=== PATIENT | female | born 1950 | race Caucasian/White ===

== ENCOUNTER 2019-03-14 17:59 | Emergency (ER) | payer MEDICARE ==
[~2019-03-14] VITALS: Ht 162.6 cm; Wt 61.4 kg
[~2019-03-14 17:59] MED LIST: ALBU6.7H8 INH; AMOX1TAB12; BUTA-177 PO; CLAR500T3; FLUT50DI; GUAI10LI10 PO; LEVO750T6 PO; OMEP20CA9 PO; RANI-467; SUMA100T4
--- NOTE | 2019-03-14 18:18 | NUR ---
PT AMBULATED BACK TO ROOM WITH A STEADY GAIT. CHANGED INTO A HOSPITAL GOWN AND CONNECTED TO MONITORS. PT IN ED TODAY WITH C/O "BLADDER PAIN" X1 MONTH. 3 DAYS AGO FEELS THAT "THERE WAS AN EXPLOSION AND IT WAS LIKE ACID THROUGH-OUT MY BODY" FOLLOWING EPOSIDE PT BEGAN HAVING YELLOW DISCHARGE.
--- NOTE | 2019-03-14 18:20 | NUR ---
MD AT BEDSIDE. EXAM PERFORMED WITH THIS RN AT BEDSIDE.
--- NOTE | 2019-03-14 18:31 | NUR ---
pt up to bathroom. UA obtained and sent to lab
[2019-03-14 19:01] LABS: BASOPHILS # (AUTO) 0.11 x10^3/uL (0-0.1); BASOPHILS % (AUTO) 1 % (0-1); EOSINOPHILS # (AUTO) 0.17 x10^3/uL (0-0.4); EOSINOPHILS % (AUTO) 2 % (1-7); LYMPHOCYTES # (AUTO) 3.16 x10^3/uL (1-3.4); LYMPHOCYTES % (AUTO) 36 % (22-44); MD NO; MEAN CORPUSCULAR HEMOGLOBIN 29.7 pg (27.0-34.8); MEAN CORPUSCULAR HGB CONC 33.2 g/dL (32.4-35.8); MEAN CORPUSCULAR VOLUME 89.3 fL (80-100); MEAN PLATELET VOLUME 8.6 fL (7.4-10.4); MONOCYTES # (AUTO) 0.67 x10^3/uL (0.2-0.8); MONOCYTES % (AUTO) 8 % (2-9); NEUTROPHILS # (AUTO) 4.67 x10^3/uL (1.8-6.8); NEUTROPHILS % (AUTO) 53 % (42-75); PLATELET COUNT 314 x10^3/uL (130-400); RED BLOOD COUNT 4.46 x10^6/uL (3.82-5.3); RED CELL DISTRIBUTION WIDTH 14.5 % (9.6-15.2)
--- NOTE | 2019-03-14 19:02 | NUR ---
Nocturnal RN to bedside. Received report from diurnal RN and assumed patient care. Nursing tasks completed by day RN. Awaiting urine and blood draw results for disposition.
[2019-03-14 19:11] LABS: ALANINE AMINOTRANSFERASE 24 U/L (12-78); ANION GAP 8 mmol/L (5-15); CALCIUM 8.6 mg/dL (8.5-10.1); CHLORIDE 110 mmol/L (98-107); CREATININE 0.93 mg/dL (0.55-1.02)
[2019-03-14 19:14] LABS: ALKALINE PHOSPHATASE 92 U/L (45-117); BILIRUBIN,TOTAL 0.6 mg/dL (0.2-1.0); TOTAL PROTEIN 7.1 g/dL (6.4-8.2)
[2019-03-14 19:23] LABS: CULTURE INDICATED? YES; MICROSCOPIC INDICATED
[2019-03-14 20:34] VITALS: BP 129/75
== END 2019-03-14 20:56 | disposition home or self-care (01) ==
LOC: ED 20:46
DX: N30.00 Acute cystitis without hematuria (principal)
CPT/HCPCS: 36415; 80053; 81001; 85025; 87086; 87147; 99283